=== PATIENT | male | born 1985 | race Caucasian/White ===

== ENCOUNTER 2019-03-06 13:56 | Emergency (ER) | payer MEDICAID ==
[~2019-03-06] VITALS: Ht 175.3 cm; Wt 77.8 kg
[~2019-03-06 13:56] MED LIST: NO HOME MEDS
[2019-03-06 14:03] VITALS: BP 126/70
[2019-03-06 14:24] LABS: CLARITY,URINE CLEAR (Clear); COLOR,URINE STRAW (Yellow); GLUCOSE, URINE NEGATIVE (Neg); KETONES,URINE NEGATIVE (Neg); LEUKOCYTE ESTERASE ,URINE NEGATIVE (Neg); NITRITES, URINE NEGATIVE (Neg); OCCULT BLOOD,URINE TRACE-LYSED (Neg); PROTEIN,URINE NEGATIVE (Neg); UROBILINOGEN,URINE 0.2 E.U/dL (0.2-1.0)
[2019-03-06 14:28] LABS: UA COLLECTION TYPE CLN CATCH MIDSTREAM
[2019-03-06 14:28] LABS: BASOPHILS % (AUTO) 0.3 % (0-1); EOSINOPHILS # (AUTO) 0.2 X10'3 (0-0.9); EOSINOPHILS % (AUTO) 2.2 % (0-6); HEMATOCRIT 43.7 % (42.0-52.0); HEMOGLOBIN 14.8 g/dl (14.0-17.9); LYMPHOCYTES # (AUTO) 1.7 X10'3 (1.1-4.8); LYMPHOCYTES % (AUTO) 22.2 % (21-51); MEAN CORPUSCULAR HEMOGLOBIN 31.5 PG (27.0-31.0); MEAN CORPUSCULAR HGB CONC 33.8 g/dL (33.0-36.5); MEAN CORPUSCULAR VOLUME 93.1 FL (78-98); MEAN PLATELET VOLUME 7.6 FL (7.4-10.4); MONOCYTES # (AUTO) 0.6 X10'3 (0-0.9); MONOCYTES % (AUTO) 7.6 % (2-12); NEUTROPHILS # (AUTO) 5.2 X10'3 (1.8-7.7); NEUTROPHILS % (AUTO) 67.7 % (42-75); PLATELET COUNT 270 X10'3 (140-440); RED CELL DISTRIBUTION WIDTH 13.9 % (11.5-14.5); WHITE BLOOD COUNT 7.6 X10'3 (4.5-11.0)
[2019-03-06 14:41] LABS: BACTERIA,URINE NONE SEEN /HPF (Neg); RBC,URINE 0-2 /HPF (0-2); SQUAMOUS EPITHELIAL CELL,UR NONE SEEN /LPF (FEW)
[2019-03-06 14:42] LABS: WBC,URINE NONE SEEN /HPF (0-4)
[2019-03-06 14:44] LABS: ALANINE AMINOTRANSFERASE 150 U/L (12-78); ALKALINE PHOSPHATASE 70 IU/L (46-116); ANION GAP 6 (8-16); ASPARTATE AMINO TRANSFERASE 33 U/L (10-37); BILIRUBIN,TOTAL 0.5 MG/DL (0.1-1.0); BLOOD UREA NITROGEN 14 MG/DL (7-18); BUN/CREATININE RATIO 15.2 (5.4-32.0); CALCIUM 9.1 MG/DL (8.5-10.1); CHLORIDE 103 MMOL/L (99-107); CREATININE 0.92 MG/DL (0.60-1.10); GLUCOSE 90 MG/DL (70-104); POTASSIUM 3.9 MMOL/L (3.5-5.1); SODIUM 138 MMOL/L (135-145); TOTAL CARBON DIOXIDE 28.9 MMOL/L (24-32); TOTAL PROTEIN 7.9 G/DL (6.4-8.2); eGFR > 90 ML/MIN
[2019-03-06 14:59] LABS: LIPASE 185 U/L (73-393)
== END 2019-03-06 14:59 | disposition home or self-care (01) ==
LOC: ER 13:56
DX: R10.13 Epigastric pain (principal); R11.2 Nausea with vomiting, unspecified; R19.7 Diarrhea, unspecified
CPT/HCPCS: 36415; 80053; 81001; 83690; 85025; 85610; 99283

== ENCOUNTER 2024-05-22 19:48 | Emergency (ER) | payer OTHER, MEDICAID ==
[~2024-05-22] VITALS: Ht 175.3 cm; Wt 83.4 kg
[2024-05-22 23:00] VITALS: BP 124/77; PULSE 88; TEMP 98.6; O2SAT 99
[2024-05-22 23:36] VITALS: RESP 18
[2024-05-22] MEDS: ketorolac trometh 15mg/ml vial 15 MG/ML ML IM ONE (23:36)
[2024-05-22] MEDS ORDERED: NAPR-996 PO (23:42)
[2024-05-22] MEDS ORDERED: METH-798 PO (23:42)
== END 2024-05-22 23:49 | disposition home or self-care (01) ==
LOC: ER 19:49
DX: S16.1XXA Strain of muscle, fascia and tendon at neck level, initial encounter (principal); V89.2XXA Person injured in unspecified motor-vehicle accident, traffic, initial encounter; Y93.89 Activity, other specified; Y92.89 Other specified places as the place of occurrence of the external cause; Y99.8 Other external cause status
CPT/HCPCS: 72040; 96372; 99283; J1885

== ENCOUNTER 2024-07-24 13:12 | Emergency (ER) | payer OTHER ==
[~2024-07-24] VITALS: Ht 175.3 cm; Wt 82.8 kg
[~2024-07-24 13:12] MED LIST changes: +METH-798 PO; +NAPR-996 PO
[2024-07-24] MEDS ORDERED: GABA-530 PO (14:03)
[2024-07-24] MEDS ORDERED: LIDO700A47 TOP (14:03)
[2024-07-24] MEDS: ketorolac trometh 30MG/ML vial 30 MG/ML VIAL IM ONE (14:13)
[2024-07-24 14:17] VITALS: BP 138/70; PULSE 79; RESP 16; TEMP 97.8; O2SAT 98
== END 2024-07-24 14:18 | disposition home or self-care (01) ==
LOC: ER 13:12
DX: G89.29 Other chronic pain (principal); M25.512 Pain in left shoulder; Z79.1 Long term (current) use of non-steroidal anti-inflammatories (NSAID); Z79.899 Other long term (current) drug therapy
CPT/HCPCS: 73030; 96372; 99283; J1885

== ENCOUNTER 2024-08-17 18:47 | Emergency (ER) | payer SELFPAY ==
[~2024-08-17] VITALS: Ht 175.3 cm; Wt 83.5 kg
[~2024-08-17 18:47] MED LIST changes: +GABA-530 PO; +LIDO700A47 TOP
[2024-08-17 18:48] VITALS: TEMP 98.8
[2024-08-17 20:30] VITALS: BP 114/53
[2024-08-17] MEDS ORDERED: ALBU8HFA INH (20:42)
[2024-08-17] MEDS ORDERED: ATRIN IH (20:42)
[2024-08-17] MEDS: ipratropium/albuterol 3ml nebule NEB ONE (21:00)
[2024-08-17 21:01] VITALS: PULSE 61; RESP 2; O2SAT 95
[2024-08-17 21:10] VITALS: PULSE 77; RESP 11; O2SAT 99
== END 2024-08-17 21:18 | disposition home or self-care (01) ==
LOC: ER 18:47
DX: R06.03 Acute respiratory distress (principal); F10.90 Alcohol use, unspecified, uncomplicated; F17.200 Nicotine dependence, unspecified, uncomplicated; Z20.822 Contact with and (suspected) exposure to COVID-19; Y90.9 Presence of alcohol in blood, level not specified
CPT/HCPCS: 36415; 71045; 87502; 87503; 87811; 93005; 94640; 94760; 99285

== ENCOUNTER 2024-08-22 19:29 | Emergency (ER) | payer MEDICAID, OTHER ==
[~2024-08-22] VITALS: Ht 175.3 cm; Wt 64.5 kg
[~2024-08-22 19:29] MED LIST changes: +ALBU8HFA INH; +ATRIN IH
[2024-08-22 20:22] VITALS: BP 122/85; PULSE 86; RESP 15; TEMP 95.6; O2SAT 99
[2024-08-22] MEDS ORDERED: AMOX-580 PO (20:46)
== END 2024-08-22 20:51 | disposition home or self-care (01) ==
LOC: ER 19:29
DX: S61.212A Laceration without foreign body of right middle finger without damage to nail, initial encounter (principal); Z79.899 Other long term (current) drug therapy; Z79.1 Long term (current) use of non-steroidal anti-inflammatories (NSAID); X58.XXXA Exposure to other specified factors, initial encounter; Y93.89 Activity, other specified; Y92.89 Other specified places as the place of occurrence of the external cause; Y99.8 Other external cause status
CPT/HCPCS: 99283

== ENCOUNTER 2024-09-13 20:35 | Emergency (ER) | payer MEDICAID ==
[~2024-09-13] VITALS: Ht 175.3 cm; Wt 84.1 kg
[~2024-09-13 20:35] MED LIST changes: +NAPR-1168 PO; -NAPR-996 PO
[2024-09-13 20:58] VITALS: TEMP 98.1
[2024-09-13 23:13] VITALS: BP 119/71; PULSE 60; RESP 16; O2SAT 98
== END 2024-09-14 01:49 | disposition left against medical advice (07) ==
LOC: ER 20:35
DX: M25.512 Pain in left shoulder (principal); Z79.899 Other long term (current) drug therapy; V89.2XXA Person injured in unspecified motor-vehicle accident, traffic, initial encounter; Y93.89 Activity, other specified; Y92.410 Unspecified street and highway as the place of occurrence of the external cause; Y99.8 Other external cause status
CPT/HCPCS: 71045; 73030

== ENCOUNTER 2024-09-16 15:01 | Emergency (ER) | payer MEDICAID ==
[~2024-09-16] VITALS: Ht 175.3 cm; Wt 82.2 kg
[2024-09-16] MEDS ORDERED: CYCL-394 PO (15:21)
[2024-09-16] MEDS ORDERED: NAPR-56 PO (15:21)
[2024-09-16] MEDS ORDERED: ketorolac trometh 15mg/ml vial 15 MG/ML ML IM ONE (15:25)
[2024-09-16] MEDS: ketorolac trometh 30MG/ML vial 30 MG/ML VIAL IM ONE (15:27)
[2024-09-16 15:31] VITALS: BP 159/59; PULSE 84; RESP 16; TEMP 98; O2SAT 99
== END 2024-09-16 15:32 | disposition home or self-care (01) ==
LOC: ER 15:02
DX: M54.2 Cervicalgia (principal); M25.512 Pain in left shoulder; F17.210 Nicotine dependence, cigarettes, uncomplicated; V89.2XXA Person injured in unspecified motor-vehicle accident, traffic, initial encounter; Y93.89 Activity, other specified; Y92.410 Unspecified street and highway as the place of occurrence of the external cause; Y99.8 Other external cause status; Y90.9 Presence of alcohol in blood, level not specified
CPT/HCPCS: 96372; 99283; J1885

== ENCOUNTER 2024-09-26 14:45 | Emergency (ER) | payer MEDICAID ==
[~2024-09-26] VITALS: Ht 175.3 cm; Wt 84.1 kg
[~2024-09-26 14:45] MED LIST changes: -ALBU8HFA INH; +CYCL-394 PO; +NAPR-56 PO
[2024-09-26 14:48] VITALS: BP 138/72; PULSE 73; RESP 16; TEMP 98; O2SAT 99
== END 2024-09-26 17:01 | disposition home or self-care (01) ==
LOC: ER 14:46
DX: M25.571 Pain in right ankle and joints of right foot (principal); M54.2 Cervicalgia; Z79.899 Other long term (current) drug therapy; V89.2XXA Person injured in unspecified motor-vehicle accident, traffic, initial encounter; Y93.89 Activity, other specified; Y92.89 Other specified places as the place of occurrence of the external cause; Y99.8 Other external cause status
CPT/HCPCS: 73610; 99283

== ENCOUNTER 2024-12-05 08:56 | Emergency (ER) | payer MEDICAID ==
[~2024-12-05] VITALS: Ht 175.3 cm; Wt 84.0 kg
[~2024-12-05 08:56] MED LIST changes: -CYCL-394 PO; -NAPR-56 PO
[2024-12-05 08:59] VITALS: BP 150/80; PULSE 65; O2SAT 97
--- NOTE | 2024-12-05 09:37 | Physician Documentation ---
HPI ~ General Chief Complaint: Tooth Problem Stated Complaint: TOOTH PAIN Time Seen by MD: 09:19 Primary Medical Doctor: [facility] History of Present Illness HPI Comment The patient Is seen today with complaints of multiple dental caries and dental fractures and nerve pain in his teeth. Patient states he was given a prescription of amoxicillin little while ago for similar issues and he just started taking it two days ago. Patient denies any fevers or chills or body aches. Patient is here today for a Toradol shot or some other form of pain relief. Patient states he is currently taking Suboxone. Patient has other concern or complaint at this time. Medication Reconciliation Allergies: Coded Allergies: No Known Allergies (Unverified , 08/22/24) Scheduled Gabapentin (Gabapentin), 1 CAP PO Q8H Lidocaine (Lidocaine), 1 PATCH TOP DAILY Methocarbamol (Methocarbamol), 1 TAB PO Q8H Naproxen (Naproxen), 1 TAB PO Q12H Scheduled PRN Ipratropium [place] MDI* (Atrovent MDI*), 2 PUFF IH Q8H PRN for cough & congestion Miscellaneous Medications Home Med List (No Home Medications), (Reported) Past Medical History Past Medical History: No Pertinent History Past Surgical History: noncontributory Alcohol Use: Sober Drug Use: none Lives In: Other Review of Systems Constitutional: Denies: chills, fever, weakness Eyes: Denies: pain, blurred vision ENT: Denies: ear pain, nose pain, throat pain, mouth pain Respiratory: Denies: cough, shortness of breath Cardiovascular: Denies: chest pain, palpitations Gastrointestinal: Denies: abdominal pain, nausea, vomiting Genitourinary: Denies: burning, dysuria Male Genitalia: Denies: penile discharge, testicular pain Neurological: Denies: headache, dizziness Musculoskeletal: Denies: pain, swelling Integumentary: Denies: rash, lesions Allergic/Immunologic: Denies: hives, itching Hematologic/Lymphatic: Denies: no symptoms reported Psychiatric: Denies: depression, anxiety Physical Exam Vital Signs: Temperature: 98.9, Heart Rate: 65, Respiratory Rate: 14, BP: 150/80, Pulse Oximetry: 97, Weight: 84.000 Oxygen Flow Rate: 0 Physical Exam General: Awake and Alert, no acute distress. HEENT: Pt Has very deep cavities in multiple molars. I do not appreciate any periapical abscess. Conjunctiva pink, Sclera clear, Mucus Membranes moist. Neck: Supple without masses and tenderness. Resp: Unlabored. Lungs clear to auscultation bilaterally. Heart: Regular Rate and rhythm, normal S1 and S2 without murmur, rub or gallop. Extremities: No cyanosis,clubbing or edema. Skin: Warm and Dry. Progress Results/Orders Results/Orders Completed Orders - ZULY HARVEY Ketorolac Trometh 30mg/Ml Vial (Toradol (12/05/24 09:37) Medications Received in ER Medications (Trade) Dose Ordered Sig/Verónica Route PRN Reason Start Time Stop Time Status Last Admin Dose Admin (Toradol inj. 30mg/ml) 30 mg ONCE STAT IM 12/05/24 09:37 12/05/24 09:46 DC 12/05/24 09:53 30 MG Vital Signs 12/05/24 12/05/24 08:59 09:53 Temp 98.9 Pulse 65 Resp 14 16 B/P (MAP) 150/80 Pulse Ox 97 O2 Flow Rate 0 Medical Decision Making Findings Patient is seen today with complaints of suicide risk. Patient states that he has had plans to kill himself by laying [place] and getting run over today or tomorrow. Patient also states he wants to get into rehab drugs and alcohol. Patient denies any homicidal risk or danger to others in admits to only danger to himself. Patient admits to being homeless. Patient has no new or other concern or complaint at this time. Patient will finish out course of antibiotic that was prescribed previously at different appointment. Patient was given a Toradol shot today 30 mg IM in the E D. Patient will continue Tylenol and ibuprofen at max doses as needed. Patient will make an appointment as soon as possible with a dentist. Return to ED with any worsening, concerning or changing symptoms. Departure Disposition: 01 HOME / SELF CARE / HOMELESS Impression: Primary Impression: Toothache Condition: Improved Discharge Instructions: Dental Pain Additional Instructions: Patient will finish out course of antibiotic that was prescribed previously at different appointment. Patient was given a Toradol shot today 30 mg IM in the ED. Patient will continue Tylenol and ibuprofen at max doses as needed. Patient was given new prescription for amoxicillin 875 mg, one tab by mouth twice a day for 10 days. Patient will make an appointment as soon as possible with a dentist. Return to ED with any worsening, concerning or changing symptoms. Referrals: NO PRIMARY CARE PROVIDER (PCP) Prescriptions Amoxicillin Trihydrate (Amoxicillin) 875 Mg Tablet 1 TAB PO Q12H for 10 Days, #20 TAB Prov: ZULY HARVEY 12/05/24 Signature Scribe Signature: No scribe Attestation: No scribe ZULY HARVEY December 05, 2024 09:37
[2024-12-05 09:53] VITALS: RESP 16
[2024-12-05] MEDS: ketorolac trometh 30MG/ML vial 30 MG/ML VIAL IM STA (09:53)
[2024-12-05] MEDS ORDERED: AMOX875T10 PO (10:10)
[2024-12-05 10:15] VITALS: TEMP 98.9
== END 2024-12-05 10:17 | disposition home or self-care (01) ==
LOC: ER 08:56
DX: K02.9 Dental caries, unspecified (principal); K08.89 Other specified disorders of teeth and supporting structures; Z79.899 Other long term (current) drug therapy
CPT/HCPCS: 96372; 99283; J1885

== ENCOUNTER 2024-12-05 18:21 | Emergency (ER) | payer MEDICAID ==
[~2024-12-05 18:21] MED LIST changes: +AMOX875T10 PO
--- NOTE | 2024-12-05 19:00 | Physician Documentation ---
HPI ~ General Stated Complaint: DENTAL PAIN Time Seen by MD: 18:27 Primary Medical Doctor: [facility] History of Present Illness HPI Comment Patient is seen today with similar complaints of dental pain. Patient was previously seen this morning was given a Toradol shot 30 mg IM. Patient states he is still having dental pain. He states he has an appointment for extraction on Monday. Patient is requesting Huntly even though the patient is currently taking Suboxone. Patient states he has actually been smoking the Suboxone and/or putting the Suboxone in his eye because he feels it is rotting his teeth. Patient has no other concern or complaint at this time. Medication Reconciliation Allergies: Coded Allergies: No Known Allergies (Unverified , 08/22/24) Scheduled Amoxicillin Trihydrate (Amoxicillin), 1 TAB PO Q12H Gabapentin (Gabapentin), 1 CAP PO Q8H Lidocaine (Lidocaine), 1 PATCH TOP DAILY Methocarbamol (Methocarbamol), 1 TAB PO Q8H Naproxen (Naproxen), 1 TAB PO Q12H Scheduled PRN Ipratropium [place] MDI* (Atrovent MDI*), 2 PUFF IH Q8H PRN for cough & congestion Miscellaneous Medications Home Med List (No Home Medications), (Reported) Past Medical History Past Medical History: No Pertinent History Past Surgical History: noncontributory Alcohol Use: Sober Drug Use: none Lives In: Other Review of Systems Constitutional: Denies: chills, fever, weakness Eyes: Denies: pain, blurred vision ENT: Denies: ear pain, nose pain, throat pain, mouth pain Respiratory: Denies: cough, shortness of breath Cardiovascular: Denies: chest pain, palpitations Gastrointestinal: Denies: abdominal pain, nausea, vomiting Genitourinary: Denies: burning, dysuria Male Genitalia: Denies: penile discharge, testicular pain Neurological: Denies: headache, dizziness Musculoskeletal: Denies: pain, swelling Integumentary: Denies: rash, lesions Allergic/Immunologic: Denies: hives, itching Hematologic/Lymphatic: Denies: no symptoms reported Psychiatric: Denies: depression, anxiety Physical Exam Physical Exam General: Awake and Alert, no acute distress. HEENT: Patient continues with multiple dental caries and dental fractures. Conjunctiva pink, Sclera clear, Mucus Membranes moist. Neck: Supple without masses and tenderness. Resp: Unlabored. Lungs clear to auscultation bilaterally. Heart: Regular Rate and rhythm, normal S1 and S2 without murmur, rub or gallop. Extremities: No cyanosis,clubbing or edema. Skin: Warm and Dry. Medical Decision Making Findings Patient is seen today with similar complaints of dental pain. Patient was previously seen this morning was given a Toradol shot 30 mg IM. Patient states he is still having dental pain. He states he has an appointment for extraction on Monday. Patient is requesting Huntly even though the patient is currently taking Suboxone. Patient states he has actually been smoking the Suboxone and/or putting the Suboxone in his eye because he feels it is rotting his teeth. Patient has no other concern or complaint at this time. I strongly advised patient take the Suboxone as prescribed which is sublingual. Patient voiced understanding. Patient will follow up with dentist as soon as possible. Patient will take Tylenol 1000 mg by mouth three to 4 times a day as needed for added pain control. Patient states he is currently taking Suboxone 6 mg a day and I recommended increasing his dose to what he states he is actually prescribed which is 12 mg a day patient voiced understanding. Shared decision-making utilized today. I do not feel comfortable prescribing this patient Huntly today. Departure Disposition: HOME / SELF CARE / HOMELESS Impression: Primary Impression: Toothache Condition: Stable Discharge Instructions: Dental Abscess, [id number] Additional Instructions: I strongly advised patient take the Suboxone as prescribed which is sublingual. Patient voiced understanding. Patient will follow up with dentist as soon as possible. Patient will take Tylenol 1000 mg by mouth three to 4 times a day as needed for added pain control. Patient states he is currently taking Suboxone 6 mg a day and I recommended increasing his dose to what he states he is actually prescribed which is 12 mg a day patient voiced understanding. Shared decision- making utilized today. I do not feel comfortable prescribing this patient Huntly today. Referrals: NO PRIMARY CARE PROVIDER (PCP) Prescriptions Amoxicillin Trihydrate (Amoxicillin) 875 Mg Tablet 1 TAB PO Q12H for 10 Days, #20 TAB Prov: ZULY HARVEY 12/05/24 Signature Scribe Signature: No scribe Attestation: No scribe ZULY HARVEY December 05, 2024 19:00
== END 2024-12-05 19:13 | disposition home or self-care (01) ==
LOC: ER 18:23
DX: K02.9 Dental caries, unspecified (principal); K08.89 Other specified disorders of teeth and supporting structures; Z79.899 Other long term (current) drug therapy
CPT/HCPCS: 99283